=== PATIENT | female | born 1990 | race Caucasian/White ===

== ENCOUNTER 2017-06-27 15:19 | Emergency (ER) | payer OTHER ==
[~2017-06-27] VITALS: Ht 175.3 cm; Wt 70.8 kg
[~2017-06-27 15:19] MED LIST: ALPR0.5T PO; ALPR1TAB2 PO; CIDE500T PO; LACT1CAP29 PO; LEXAPRO10 MG PO; MORP15TA PO; MORP15TA3 PO; OXYC-328 PO; POLY17PO3 PO; PRED-220 PO; PRED20TA PO; TIZA4TAB PO; TRAZ50TA15 PO; [UNRECOGNIZED DRUG - OTHER] PO
--- NOTE | 2017-06-27 16:32 | PHYS DOC ---
Past Medical History Past Medical History: Other Additional Past Medical Histor: M.S., CERVICAL CA., major depress d/o Past Surgical History: Tonsillectomy, Other Additional Past Surgical Histo: PARTIAL HYSTERECTOMY, DENTAL SURGERY Alcohol Use: Rarely Drug Use: None Adult General Chief Complaint Chief Complaint: WEAKNESS/GENERALIZED HPI HPI Patient is a 27 year old [place] female who presents with was weakness. She states this happens when her MS flares up. She states she can hardly stand up to get to the bathroom because she so weak. She denies any urinary incontinence , fevers chills nausea or vomiting. She states she suffers from chronic back pain and knee pain and ankle pain. She states her last flare was present to 3 weeks ago of which she had to take prednisone for. She states that she seen Dr. Armando during her last admission. She states she's been out of all of her pain meds for the last several days. She states her primary care physician we' ll give her any more pain meds and she is to follow-up with [facility]. Review of Systems Review of Systems Constitutional: Denies fever or chills Eyes: Denies change in visual acuity, redness, or eye pain HENT: Denies nasal congestion or sore throat Respiratory: Denies cough or shortness of breath Cardiovascular: No additional information not addressed in HPI GI: Denies abdominal pain, nausea, vomiting, bloody stools or diarrhea : Denies dysuria or hematuria Musculoskeletal: Denies back pain or joint pain Integument: Denies rash or skin lesions Neurologic: Denies headache, positive for focal weaknesses all 4 extremities Endocrine: Denies polyuria or polydipsia Current Medications Current Medications Current Medications Medications (Trade) Dose Ordered Sig/Alee Start Time Stop Time Status Last Admin Dose Admin Morphine Sulfate 4 mg PRN Q2HR PRN 06/27/17 18:45 06/28/17 18:44 Ondansetron HCl (Zofran) 4 mg PRN Q8HRS PRN 06/27/17 18:45 06/28/17 18:44 Allergies Allergies Allergies Coded Allergies Type Severity Reaction Last Updated Verified gabapentin Allergy Unknown 03/22/17 Yes prednisone Adverse Reaction Intermediate PATIENT GETS EMOTIONAL 03/22/17 Yes Physical Exam Physical Exam Constitutional: Well developed, well nourished, no acute distress, non-toxic appearance. HENT: Normocephalic, atraumatic, bilateral external ears normal, oropharynx moist, no oral exudates, nose normal. Eyes: PERRLA, EOMI, conjunctiva normal, no discharge. Neck: Normal range of motion, no tenderness, supple, no stridor. Cardiovascular:Heart rate regular rhythm, no murmur Lungs & Thorax: Bilateral breath sounds clear to auscultation Abdomen: Bowel sounds normal, soft, no tenderness, no masses, no pulsatile masses. Skin: Warm, dry, no erythema, no rash. Back: No tenderness, no CVA tenderness. Extremities: No tenderness, no cyanosis, no clubbing, ROM intact, no edema. Neurologic: Alert and oriented X 3, 3 out of 4 strength of bilateral lower extremities and bilateral upper extremities normal sensory function, no focal deficits noted. Psychologic: Affect normal, judgement normal, mood normal. Current Patient Data Vital Signs Vital Signs Date Time Temp Pulse Resp B/P (MAP) Pulse Ox O2 Delivery O2 Flow Rate FiO2 06/27/17 18:21 79 19 97 06/27/17 18:10 Room Air 06/27/17 16:03 98.5 109/74 (86) 98.5 Lab Values Laboratory Tests Test 06/27/17 16:30 06/27/17 17:55 White Blood Count 7.6 x10^3/uL (4.0-11.0) Red Blood Count 4.65 x10^6/uL (3.50-5.40) Hemoglobin 12.7 g/dL (12.0-15.5) Hematocrit 38.6 % (36.0-47.0) Mean Corpuscular Volume 83 fL (79-100) Mean Corpuscular Hemoglobin 27 pg (25-35) Mean Corpuscular Hemoglobin Concent 33 g/dL (31-37) Red Cell Distribution Width 13.6 % (11.5-14.5) Platelet Count 220 x10^3/uL (140-400) Neutrophils (%) (Auto) 47 % (31-73) Lymphocytes (%) (Auto) 35 % (24-48) Monocytes (%) (Auto) 13 % (0-9) H Eosinophils (%) (Auto) 4 % (0-3) H Basophils (%) (Auto) 1 % (0-3) Neutrophils # (Auto) 3.6 x10^3uL (1.8-7.7) Lymphocytes # (Auto) 2.7 x10^3/uL (1.0-4.8) Monocytes # (Auto) 1.0 x10^3/uL (0.0-1.1) Eosinophils # (Auto) 0.3 x10^3/uL (0.0-0.7) Basophils # (Auto) 0.0 x10^3/uL (0.0-0.2) Sodium Level 141 mmol/L (136-145) Potassium Level 4.3 mmol/L (3.5-5.1) Chloride Level 106 mmol/L (98-107) Carbon Dioxide Level 26 mmol/L (21-32) Anion Gap 9 (6-14) Blood Urea Nitrogen 7 mg/dL (7-20) Creatinine 0.6 mg/dL (0.6-1.0) Estimated GFR (Cockcroft-Gault) 118.2 Glucose Level 87 mg/dL (70-99) Calcium Level 8.5 mg/dL (8.5-10.1) Magnesium Level 2.1 mg/dL (1.8-2.4) Total Bilirubin 0.2 mg/dL (0.2-1.0) Direct Bilirubin < 0.1 mg/dL (0.0-0.2) Aspartate Amino Transferase (AST) 24 U/L (15-37) Alanine Aminotransferase (ALT) 28 U/L (14-59) Alkaline Phosphatase 82 U/L (46-116) Creatine Kinase 108 U/L (26-192) Creatine Kinase MB (Mass) 0.8 ng/mL (0.0-3.6) Creatine Kinase MB Relative Index 0.7 % (0-4) Total Protein 6.1 g/dL (6.4-8.2) L Albumin 3.0 g/dL (3.4-5.0) L Thyroid Stimulating Hormone (TSH) 0.676 uIU/mL (0.358-3.74) Serum Test, Qualitative Negative (NEG) Urine Collection Type U cath Urine Color Yellow Urine Clarity Clear Urine pH 5.5 Urine Specific [place] 1.020 Urine Protein Negative mg/dL (NEG-TRACE) Urine Glucose (UA) Negative mg/dL (NEG) Urine Ketones (Stick) Negative mg/dL (NEG) Urine Blood Negative (NEG) Urine Nitrite Negative (NEG) Urine Bilirubin Negative (NEG) Urine Urobilinogen Dipstick 1.0 mg/dL (0.2 mg/dL) Urine Leukocyte Esterase Negative (NEG) Urine RBC Rare /HPF (0-2) Urine WBC Rare /HPF (0-4) Urine Squamous Epithelial Cells Mod /LPF Urine Bacteria 0 /HPF (0-FEW) Urine Mucus Marked /LPF Urine Opiates Screen Pos (NEG) Urine Methadone Screen Neg (NEG) Urine Barbiturates Neg (NEG) Urine Phencyclidine Screen Neg (NEG) Urine Amphetamine/Methamphetamine Neg (NEG) Urine Benzodiazepines Screen Pos (NEG) Urine Cocaine Screen Neg (NEG) Urine Cannabinoids Screen Neg (NEG) Urine Ethyl Alcohol Neg (NEG) Laboratory Tests 06/27/17 16:30 Laboratory Tests 06/27/17 16:30 EKG EKG [] Radiology/Procedures Radiology/Procedures [] Impressions: Chronic pain Weakness History of MS Course & Med Decision Making Course & Med Decision Making Pertinent Labs and Imaging studies reviewed. (See chart for details) Patient is been out of her pain meds his which inform the hospitalist. Spoke with Dr. Armando who states that she is be discharged home and not received steroids because she just got out of the hospital and had steroids. He states he can follow her up in the clinic. She is out of her MS Contin which she takes 30 mg by mouth twice a day, she takes morphine IR 50 mg every 4 hours. Pain she has 1 mg Xanax every 6 hours trazodone 50 mg daily at bedtime in addition to Zanaflex 4 mg 3 times a day. She is agreeable being discharged if I refill some of her medicines of which have chose MS Contin, morphine IR and Zanaflex. I've given her 1 week's worth of therapy and she states she has a follow-up appointment with [facility]. She states her primary care physician is refusing a rider and more pain meds. Her labs do not show any acute abnormalities she's being discharged in stable condition at this time to follow-up with Dr. Armando as an outpatient. Dragon Disclaimer Dragon Disclaimer This electronic medical record was generated, in whole or in part, using a voice recognition dictation system. Departure Departure Impression: Primary Impression: Pain management Disposition: HOME, SELF-CARE Condition: STABLE Referrals: CESILIA LIVINGSTON (PCP) HERNANDO COTNE MD Patient Instructions: Chronic Back Pain Additional Instructions: You were seen today for your weakness and chronic pain. You're getting your Zanaflex, MS Contin and morphine IR refilled for the next 7 days. You will need follow-up with [facility] and [facility]. Return back to ER for severe uncontrollable pain, high fevers, uncontrolled nausea vomiting, or other concerns. Please follow-up with Dr. Armando. Please call his office and schedule follow-up appointment. Scripts Tizanidine Hcl (ZANAFLEX) 4 Mg Capsule 1 CAP PO TID Y for MUSCLE SPASMS, #21 CAP Prov: NEO DALEY MD 06/27/17 Morphine Sulfate Er (MS CONTIN) 30 Mg Tablet.er 30 TAB PO BID, #14 TAB Prov: NEO DALEY MD 06/27/17 NEO DALEY MD Jun 27, 2017 16:32
[2017-06-27 16:41] LABS: BASO % 1 % (0-3); EOS % 4 % (0-3); HEMATOCRIT 38.6 % (36.0-47.0); HEMOGLOBIN 12.7 g/dL (12.0-15.5); LYMPH # 2.7 x10^3/uL (1.0-4.8); LYMPH % 35 % (24-48); MEAN CORPUSCULAR HEMOGLOBIN 27 pg (25-35); MEAN CORPUSCULAR HGB CONC 33 g/dL (31-37); MEAN CORPUSCULAR VOLUME 83 fL (79-100); MONO % 13 % (0-9); NEUT % 47 % (31-73); PLATELET COUNT 220 x10^3/uL (140-400); RED BLOOD COUNT 4.65 x10^6/uL (3.50-5.40); RED CELL DISTRIBUTION WIDTH 13.6 % (11.5-14.5); WHITE BLOOD COUNT 7.6 x10^3/uL (4.0-11.0)
[2017-06-27 16:58] LABS: NEG OBC SER NEG; POS OBC SER POS
[2017-06-27 17:04] LABS: ALK PHOS 82 U/L (46-116); ALT (SGPT) 28 U/L (14-59); AST (SGOT) 24 U/L (15-37); BLOOD UREA NITROGEN 7 mg/dL (7-20); CALCIUM 8.5 mg/dL (8.5-10.1); CARBON DIOXIDE 26 mmol/L (21-32); CREATININE 0.6 mg/dL (0.6-1.0); DIRECT BILIRUBIN < 0.1 mg/dL (0.0-0.2); GFR 118.2; GLUCOSE 87 mg/dL (70-99); TOTAL BILIRUBIN 0.2 mg/dL (0.2-1.0); TOTAL PROTEIN 6.1 g/dL (6.4-8.2)
[2017-06-27 17:25] LABS: CKMB MASS 0.8 ng/mL (0.0-3.6)
[2017-06-27 17:34] LABS: ANION GAP 9 (6-14); CHLORIDE 106 mmol/L (98-107); MAGNESIUM 2.1 mg/dL (1.8-2.4); POTASSIUM 4.3 mmol/L (3.5-5.1); SODIUM 141 mmol/L (136-145)
[2017-06-27] MEDS ORDERED: MORPHINE SULFATE 2 MG/ML DISP.SYRIN. IV/SQ PRN (18:00)
[2017-06-27 18:11] LABS: BILIRUBIN,URINE NEGATIVE (NEG); GLUCOSE,URINE NEGATIVE (NEG); NITRITE,URINE NEGATIVE (NEG); PH,URINE 5.5; PROTEIN,URINE NEGATIVE (NEG-TRACE)
[2017-06-27 18:12] LABS: BARBITURATES NEG (NEG); BENZODIAZEPINES POS (NEG); CANNABINOIDS NEG (NEG); COCAINE NEG (NEG); METHADONE NEG (NEG); OPIATES POS (NEG); PHENCYCLIDINE NEG (NEG)
[2017-06-27 18:15] LABS: BACTERIA,URINE 0 /HPF (0-FEW); RBC,URINE RARE /HPF (0-2); SQUAMOUS EPITHELIAL CELL,UR MOD /LPF; WBC,URINE RARE /HPF (0-4)
[2017-06-27] MEDS ORDERED: MORPHINE SULFATE 4 MG/ML DISP.SYRIN. IV PRN (18:45)
[2017-06-27] MEDS ORDERED: ONDANSETRON PF 4 MG/2 ML VIAL. IV PRN (18:45)
[2017-06-27 19:21] VITALS: BP 99/67
[2017-06-27] MEDS ORDERED: MORP30TA83 PO (19:34)
[2017-06-27] MEDS ORDERED: TIZA4CAP3 PO (19:34)
== END 2017-06-27 20:00 | disposition home or self-care (01) ==
LOC: ER 15:19
DX: G89.29 Other chronic pain (principal); M54.9 Dorsalgia, unspecified; M25.569 Pain in unspecified knee; M25.579 Pain in unspecified ankle and joints of unspecified foot; R53.1 Weakness; Z88.8 Allergy status to other drugs, medicaments and biological substances
CPT/HCPCS: 36415; 80048; 80076; 80307; 81001; 82553; 83735; 84443; 84703; 85025; 96374; 99284; J2270; G0479

== ENCOUNTER 2017-07-01 20:29 | Emergency (ER) | payer OTHER ==
[~2017-07-01] VITALS: Ht 175.3 cm; Wt 70.8 kg
[~2017-07-01 20:29] MED LIST changes: +MORP30TA83 PO; +TIZA4CAP3 PO
[2017-07-01] MEDS ORDERED: IV NORMAL SALINE 1000ML BAG 1,000 ML IV SCH (21:15)
[2017-07-01 21:29] LABS: BASO % 0 % (0-3); EOS % 1 % (0-3); HEMATOCRIT 44.9 % (36.0-47.0); HEMOGLOBIN 14.7 g/dL (12.0-15.5); LYMPH # 1.9 x10^3/uL (1.0-4.8); LYMPH % 20 % (24-48); MEAN CORPUSCULAR HEMOGLOBIN 27 pg (25-35); MEAN CORPUSCULAR HGB CONC 33 g/dL (31-37); MEAN CORPUSCULAR VOLUME 83 fL (79-100); MONO % 10 % (0-9); NEUT % 68 % (31-73); PLATELET COUNT 318 x10^3/uL (140-400); RED BLOOD COUNT 5.43 x10^6/uL (3.50-5.40); RED CELL DISTRIBUTION WIDTH 13.7 % (11.5-14.5); WHITE BLOOD COUNT 9.5 x10^3/uL (4.0-11.0)
--- NOTE | 2017-07-01 21:29 | PHYS DOC ---
Past Medical History Past Medical History: Other Additional Past Medical Histor: M.S., CERVICAL CA., major depress d/o Past Surgical History: Tonsillectomy, Other Additional Past Surgical Histo: PARTIAL HYSTERECTOMY, DENTAL SURGERY Alcohol Use: Rarely Drug Use: None Adult General Chief Complaint Chief Complaint: NAUSEA/VOMITING/DIARRHA HPI HPI Patient is a 27 year old female who presents with multiple complaints. The patient's primary complaint today is nausea and possible dehydration. The patient has been admitted at this facility twice in the last 3 months and was seen on June 27 in the emergency department. The patient has history of MS as well as chronic back and lower extremity pain. The patient is on chronic narcotic therapy at home. The patient recently had to change primary care providers as her previous provider, Dr. Matos, had fired her from her practice due to alleged drug-seeking behavior. The patient currently follows with Dr. Livingston. Patient states that she is being set up with pain management here [facility] but has not had an appointment at this time. The patient was seen in the emergency department on June 27 and patient was provided with a prescription for MS Contin, however patient states that she is unable to get this prescription filled as the pharmacy told her "it was too early to refill." The patient had recently been switched from Percocet to morphine sulfate immediate release tablets. Patient states that she has been getting worsening nausea and decreased appetite since taking this medication. The patient also states that she is having generalized weakness though it is noted that the patient was able to self ambulate from her room to the bathroom in the emergency department and back to her room with an unfaltering gait. During the patient's previous 2 admissions, the patient was seen in consult by neurology and had MRI imaging which showed no evidence of MS flare. The patient was suspected to have symptoms related to possible conversion disorder as dictated in her chart. In speaking with the patient and the patient's , they communicated that her primary concern was the patient's lack of appetite and concern for dehydration. This is what brought them to the emergency department today. Review of Systems Review of Systems Constitutional: Denies fever or chills [] Eyes: Denies change in visual acuity, redness, or eye pain [] HENT: Denies nasal congestion or sore throat [] Respiratory: Denies cough or shortness of breath [] Cardiovascular: Denies chest pain or edema[] GI: Nausea, decreased appetite[] : Denies dysuria or hematuria [] Musculoskeletal: Chronic back pain[] Integument: Denies rash or skin lesions [] Neurologic: Denies headache, focal weakness or sensory changes [] Current Medications Current Medications Current Medications Medications (Trade) Dose Ordered Sig/Alee Start Time Stop Time Status Last Admin Dose Admin Morphine Sulfate (Ms Contin) 30 mg 1X ONCE 07/01/17 21:45 07/01/17 21:46 DC Ondansetron HCl (Zofran) 4 mg 1X ONCE 07/01/17 21:30 07/01/17 21:31 DC 07/01/17 21:47 4 MG Sodium Chloride 1,000 ml @ 1,000 mls/hr Q1H 07/01/17 21:15 07/01/17 22:14 DC 07/01/17 21:47 1,000 MLS/HR Allergies Allergies Allergies Coded Allergies Type Severity Reaction Last Updated Verified gabapentin Allergy Unknown 03/22/17 Yes prednisone Adverse Reaction Intermediate PATIENT GETS EMOTIONAL 03/22/17 Yes Physical Exam Physical Exam Constitutional: Well developed, well nourished, no acute distress, non-toxic appearance. [] HENT: Normocephalic, atraumatic, bilateral external ears normal, oropharynx moist, no oral exudates, nose normal. [] Eyes: PERRLA, EOMI, conjunctiva normal, no discharge. [] Neck: Normal range of motion, no tenderness, supple, no stridor. [] Cardiovascular:Heart rate regular rhythm, no murmur [] Lungs & Thorax: Bilateral breath sounds clear to auscultation [] Abdomen: Bowel sounds normal, soft, no tenderness, no masses, no pulsatile masses. [] Skin: Warm, dry, no erythema, no rash. [] Back: No tenderness, no CVA tenderness. [] Extremities: No tenderness, no cyanosis, no clubbing, ROM intact, no edema. [] Neurologic: Alert and oriented X 3, normal motor function, normal sensory function, no focal deficits noted. [] Psychologic: Affect normal, judgement normal, mood normal. [] Current Patient Data Vital Signs Vital Signs Date Time Temp Pulse Resp B/P (MAP) Pulse Ox O2 Delivery O2 Flow Rate FiO2 07/01/17 20:37 99.0 99 24 125/81 (96) 97 Room Air 99.0 Lab Values Laboratory Tests Test 07/01/17 20:45 07/01/17 21:34 White Blood Count 9.5 x10^3/uL (4.0-11.0) Red Blood Count 5.43 x10^6/uL (3.50-5.40) H Hemoglobin 14.7 g/dL (12.0-15.5) Hematocrit 44.9 % (36.0-47.0) Mean Corpuscular Volume 83 fL (79-100) Mean Corpuscular Hemoglobin 27 pg (25-35) Mean Corpuscular Hemoglobin Concent 33 g/dL (31-37) Red Cell Distribution Width 13.7 % (11.5-14.5) Platelet Count 318 x10^3/uL (140-400) Neutrophils (%) (Auto) 68 % (31-73) Lymphocytes (%) (Auto) 20 % (24-48) L Monocytes (%) (Auto) 10 % (0-9) H Eosinophils (%) (Auto) 1 % (0-3) Basophils (%) (Auto) 0 % (0-3) Neutrophils # (Auto) 6.4 x10^3uL (1.8-7.7) Lymphocytes # (Auto) 1.9 x10^3/uL (1.0-4.8) Monocytes # (Auto) 1.0 x10^3/uL (0.0-1.1) Eosinophils # (Auto) 0.1 x10^3/uL (0.0-0.7) Basophils # (Auto) 0.0 x10^3/uL (0.0-0.2) Sodium Level 141 mmol/L (136-145) Potassium Level 3.5 mmol/L (3.5-5.1) Chloride Level 102 mmol/L (98-107) Carbon Dioxide Level 26 mmol/L (21-32) Anion Gap 13 (6-14) Blood Urea Nitrogen 8 mg/dL (7-20) Creatinine 0.6 mg/dL (0.6-1.0) Estimated GFR (Cockcroft-Gault) 118.2 BUN/Creatinine Ratio 13 (6-20) Glucose Level 100 mg/dL (70-99) H Calcium Level 9.6 mg/dL (8.5-10.1) Total Bilirubin 0.5 mg/dL (0.2-1.0) Aspartate Amino Transferase (AST) 27 U/L (15-37) Alanine Aminotransferase (ALT) 36 U/L (14-59) Alkaline Phosphatase 102 U/L (46-116) Total Protein 7.6 g/dL (6.4-8.2) Albumin 3.9 g/dL (3.4-5.0) Albumin/Globulin Ratio 1.1 (1.0-1.7) Lipase 154 U/L (73-393) Urine Collection Type Void Urine Color Yellow Urine Clarity Cloudy Urine pH 6.5 Urine Specific [place] 1.025 Urine Protein Negative mg/dL (NEG-TRACE) Urine Glucose (UA) Negative mg/dL (NEG) Urine Ketones (Stick) >=80 mg/dL (NEG) Urine Blood Negative (NEG) Urine Nitrite Negative (NEG) Urine Bilirubin Negative (NEG) Urine Urobilinogen Dipstick 1.0 mg/dL (0.2 mg/dL) Urine Leukocyte Esterase Negative (NEG) Urine RBC Occ /HPF (0-2) Urine WBC Occ /HPF (0-4) Urine Squamous Epithelial Cells Many /LPF Urine Bacteria Moderate /HPF (0-FEW) Urine Mucus Marked /LPF Urine Opiates Screen Pos (NEG) Urine Methadone Screen Neg (NEG) Urine Barbiturates Neg (NEG) Urine Phencyclidine Screen Neg (NEG) Urine Amphetamine/Methamphetamine Neg (NEG) Urine Benzodiazepines Screen Pos (NEG) Urine Cocaine Screen Neg (NEG) Urine Cannabinoids Screen Neg (NEG) Urine Ethyl Alcohol Neg (NEG) Laboratory Tests 07/01/17 20:45 Laboratory Tests 07/01/17 20:45 EKG EKG Not performed[] Radiology/Procedures Radiology/Procedures Not performed[] Course & Med Decision Making Course & Med Decision Making Pertinent Labs and Imaging studies reviewed. (See chart for details) Patient was started on IV fluids and Zofran in the emergency department. The patient was offered oral MS Contin, however she refused this medication stating she was concerned that it would make her sick. This was in contradiction to the patient's previous claim that it was her morphine immediate release that made her sick. The patient's blood work and urinalysis are essentially unremarkable with the exception of ketones in the urine as well as an elevated specific gravity suggesting mild dehydration. Patient's vital signs however are stable and patient appears in no acute distress. I sat and spoke extensively with the patient and her regarding appropriate pain management and stated I would refer her to Dr. Elizabeth Le of the pain management clinic. I explained that repeat visits to the emergency department for management of the patient's pain is not adequate nor is it appropriate for her condition. I recommended that the patient follow-up with your primary doctor in the next 2 days for reevaluation. I did recommend the patient return to the emergency department for any worsening or severe symptoms. Patient patient's voiced understanding and were in agreement with treatment plan at discharge. Dragon Disclaimer Dragon Disclaimer This electronic medical record was generated, in whole or in part, using a voice recognition dictation system. Departure Departure Impression: Primary Impression: Nausea Additional Impressions: Chronic back pain Dehydration Disposition: 01 HOME, SELF-CARE Condition: IMPROVED Referrals: CESILIA LIVINGSTON (PCP) ELIZABETH LE MD Patient Instructions: Chronic Pain Management, Dehydration, Adult, Nausea, Adult Additional Instructions: Call the office of Dr. Elizabeth Le, silk screen painter, for follow-up in the next 1-2 weeks for evaluation and treatment of your chronic pain. Return to the emergency department for any worsening symptoms. Scripts Ondansetron (ZOFRAN ODT) 4 Mg Tab.rapdis 1 TAB SL Q8HRS Y for NAUSEA/VOMITING, #15 TAB Prov: NAM COLBY MD 07/01/17 Problem Qualifiers Additional Impressions: Chronic back pain Back pain location: low back pain Back pain laterality: unspecified Sciatica presence: unspecified whether sciatica present Qualified Codes: M54.5 - Low back pain; G89.29 - Other chronic pain NAM COLBY MD Jul 01, 2017 21:29
[2017-07-01] MEDS ORDERED: ONDANSETRON PF 4 MG/2 ML VIAL. IV ONE (21:30)
[2017-07-01 21:40] LABS: BILIRUBIN,URINE NEGATIVE (NEG); GLUCOSE,URINE NEGATIVE (NEG); NITRITE,URINE NEGATIVE (NEG); PH,URINE 6.5; PROTEIN,URINE NEGATIVE (NEG-TRACE)
[2017-07-01 21:40] LABS: CALCIUM 9.6 mg/dL (8.5-10.1); CREATININE 0.6 mg/dL (0.6-1.0); GFR 118.2; POTASSIUM 3.5 mmol/L (3.5-5.1)
[2017-07-01 21:45] LABS: ALBUMIN 3.9 g/dL (3.4-5.0); ALBUMIN/GLOBULIN RATIO 1.1 (1.0-1.7); TOTAL BILIRUBIN 0.5 mg/dL (0.2-1.0); TOTAL PROTEIN 7.6 g/dL (6.4-8.2)
[2017-07-01] MEDS: MORPHINE ER 30 MG TABLET.ER PO ONE ×2 (21:45→22:33)
[2017-07-01 21:46] LABS: BACTERIA,URINE MODERATE /HPF (0-FEW); BARBITURATES NEG (NEG); BENZODIAZEPINES POS (NEG); CANNABINOIDS NEG (NEG); COCAINE NEG (NEG); METHADONE NEG (NEG); OPIATES POS (NEG); PHENCYCLIDINE NEG (NEG); RBC,URINE OCC /HPF (0-2); SQUAMOUS EPITHELIAL CELL,UR MANY /LPF; WBC,URINE OCC /HPF (0-4)
[2017-07-01 22:10] VITALS: BP 111/71
[2017-07-01] MEDS ORDERED: ONDA4TAB10 SL (22:16)
== END 2017-07-01 22:38 | disposition home or self-care (01) ==
LOC: ER 20:29
DX: E86.0 Dehydration (principal); R11.0 Nausea; M54.5 Low back pain; G89.29 Other chronic pain; Z88.8 Allergy status to other drugs, medicaments and biological substances; Z79.891 Long term (current) use of opiate analgesic; Z90.711 Acquired absence of uterus with remaining cervical stump
CPT/HCPCS: 36415; 80053; 80307; 81001; 83690; 85025; 87086; 96361; 96374; 99284; J2405; J7030; G0479

== ENCOUNTER 2017-11-20 21:01 | Emergency (ER) | payer OTHER ==
[2017-11-21 07:48] LABS: NEGATIVE OBC STREP NEG; POSITIVE OBC STREP POS
== END 2017-11-20 22:29 | disposition home or self-care (01) ==
LOC: ER 21:01
DX: J02.9 Acute pharyngitis, unspecified (principal); R50.9 Fever, unspecified; Z88.5 Allergy status to narcotic agent; Z88.8 Allergy status to other drugs, medicaments and biological substances
CPT/HCPCS: 87070; 87880; 99283

== ENCOUNTER → 2020-09-01 | Outpatient (CLI) | payer MEDICAID ==
[2017-11-20 21:38] VITALS: BP 114/73
[~2020-09-01] MED LIST changes: +AMOX500C PO; +MORP-15 PO; -MORP15TA3 PO; +ONDA4TAB10 SL; -OXYC-328 PO; +OXYC1TAB22 PO; +POLY17PO28 PO; -POLY17PO3 PO; -TIZA4TAB PO; +TIZA4TAB2 PO; +TRAZ-118 PO; -TRAZ50TA15 PO
--- NOTE | 2020-09-01 15:25 | RAD ---
US ABDOMEN COMPLETE: 09/01/2020 10:37 AM Indication: 30 years old Female. Generalized abdominal pain. Comparison: None. TECHNIQUE: Sonographic evaluation of the abdomen is performed utilizing grayscale and color Doppler. FINDINGS: Liver: Homogenous normal echotexture. There is hepatopedal flow within the portal venous system. Righ t hepatic lobe measures 17.3 cm. Biliary system: CBD measures 4 mm. There is no intrahepatic or extrahepatic biliary dilatation. Gallbladder: No stones, wall thickening or pericholecystic fluid. Sonographic Maxwell sign: Negative Pancreas: Visualized head and uncinate process are unremarkable. Body and tail are not visualized. Spleen: 8.6 cm. Right kidney: 10.9 x 4.6 x 4.4 cm. No hydronephrosis. Normal echotexture without focal mass or renal calculus. Left kidney: 11.2 x 5.6 x 5.8 cm. No hydronephrosis. Normal echotexture without focal mass or renal c alculus. Abdominal aorta and IVC: Visualized portions unremarkable. Proximal aorta measures 1.8 cm. Mid aorta measures 1.2 cm. Distal aorta measures 0.9 cm. Free fluid:None. IMPRESSION: No suspicious sonographic abnormality involving the abdomen as described in detail above. Electronically signed by: Shalonda Copeland MD (09/01/2020 3:22 PM) [place]
== END ==
LOC: US 10:32
PROVIDERS: ATTEND Family Medicine
DX: R10.84 Generalized abdominal pain (principal)
CPT/HCPCS: 76700

== ENCOUNTER 2021-02-10 12:40 | Emergency (ER) | payer MEDICAID ==
[~2021-02-10] VITALS: Ht 175.3 cm; Wt 58.0 kg
[~2021-02-10 12:40] MED LIST changes: -LACT1CAP29 PO; +LACT1CAP37 PO; -POLY17PO28 PO; +POLY17PO52 PO
[2021-02-10] MEDS ORDERED: oxyCODONE/APAP 5/325 1 TAB TABLET PO ONE (13:15)
[2021-02-10] MEDS ORDERED: DEXAMETHASONE 4 MG TABLET PO ONE (13:15)
--- NOTE | 2021-02-10 13:24 | ED.ADGEN ---
Past Medical History Past Medical History: Other Additional Past Medical Histor: M.S., CERVICAL CA., major depress d/o Past Surgical History: Tonsillectomy, Other Additional Past Surgical Histo: PARTIAL HYSTERECTOMY, DENTAL SURGERY Smoking Status: Current Every Day Smoker Alcohol Use: Rarely Drug Use: None General Adult EDM: Chief Complaint: VISION PROBLEM HPI: HPI: Patient is a 30-year-old female who arrives ambulatory to the emergency department with multiple medical complaints. Patient reports she was outside working in her yard on Monday and slowly developed a rash that has since spread from her arms to her torso and her abdomen. Patient reports the rash develops into small blisters and then when they are unroofed that they produce a clear discharge. Patient reports she has significant itching with this and since that time has had a headache as well as some vision changes. Patient describes her vision changes as a narrowing of her vision which has become progressive over the past 3 days as well. Patient states that she does have a history of MS and is in constant pain with myalgias. She is wondering if she may be experiencing an immune response as a relates to her MS. Patient does normally wear glasses and visited with an cleaning specialist late last year. She denies any history of fever. She further denies any history of trauma. Additionally she denies any neck involvement of her headache or neurological disturbance otherwise. She is awake, alert and neurologically intact. Review of Systems: Review of Systems: Constitutional: Denies fever or chills. [] Eyes: Reports decreased vision. [] HENT: Denies nasal congestion or sore throat. [] Respiratory: Denies cough or shortness of breath. [] Cardiovascular: Denies chest pain or edema. [] GI: Denies abdominal pain, nausea, vomiting, bloody stools or diarrhea. [] : Denies dysuria. [] Musculoskeletal: Reports low back pain and general myalgias. [] Integument: Reports rash. [] Neurologic: Reports headache. Denies focal weakness or sensory changes. [] Endocrine: Denies polyuria or polydipsia. [] Lymphatic: Denies swollen glands. [] Psychiatric: Denies depression or anxiety. [] Current Medications: Current Medications Medications (Trade) Dose Ordered Sig/Alee Start Time Stop Time Status Last Admin Dose Admin Dexamethasone (Decadron) 10 mg 1X ONCE 02/10/21 13:15 02/10/21 13:16 DC 02/10/21 13:27 10 MG Oxycodone/ Acetaminophen (Percocet 5/325) 1 tab 1X ONCE 02/10/21 13:15 02/10/21 13:16 DC 02/10/21 13:27 1 TAB Allergies: Allergies: Allergies Coded Allergies Type Severity Reaction Last Updated Verified gabapentin Allergy Unknown 03/22/17 Yes prednisone Adverse Reaction Intermediate PATIENT GETS EMOTIONAL 03/22/17 Yes Physical Exam: PE: Constitutional: Well developed, well nourished, no acute distress, non-toxic appearance. [] HENT: Normocephalic, atraumatic, bilateral external ears normal, oropharynx moist, no oral exudates, nose normal. [] Eyes: PERRLA, EOMI, conjunctiva normal, no discharge. [] Neck: Normal range of motion, no tenderness, supple, no stridor. [] Cardiovascular:Heart rate regular rhythm, no murmur [] Lungs & Thorax: Bilateral breath sounds clear to auscultation [] Abdomen: Bowel sounds normal, soft, no tenderness, no masses, no pulsatile masses. [] Skin: Patient does have what appears to be a likely viral rash. There are multiple areas over her extremities that are raised and vesicular in nature. There are no areas of petechiae or cellulitic rash. [] Back: No tenderness, no CVA tenderness. [] Extremities: No tenderness, no cyanosis, no clubbing, ROM intact, no edema. [] Neurologic: Alert and oriented X 3, normal motor function, normal sensory function, no focal deficits noted. [] Psychologic: Affect normal, judgement normal, mood normal. [] Current Patient Data: Vital Signs: Vital Signs Date Time Temp Pulse Resp B/P (MAP) Pulse Ox O2 Delivery O2 Flow Rate FiO2 02/10/21 13:27 14 98 Room Air EKG: EKG: [] Heart Score: C/O Chest Pain: No Risk Factors: Risk Factors: DM, Current or recent (<one month) smoker, HTN, HLP, family history of CAD, obesity. Risk Scores: Score 0 - 3: 2.5% MACE over next 6 weeks - Discharge Home Score 4 - 6: 20.3% MACE over next 6 weeks - Admit for Clinical Observation Score 7 - 10: 72.7% MACE over next 6 weeks - Early Invasive Strategies Radiology/Procedures: Radiology/Procedures: [] Impression: [facility] [address] [place] [address] IMAGING REPORT Signed PATIENT: KEREN CHERY ACCOUNT: [id number] : 1990 LOCATION: ER AGE: 30 SEX: F EXAM STATUS: REG ER ORD. PHYSICIAN: MANJINDER MCDOWELL DO REASON: VISION CHANGE PROCEDURE: CT HEAD WO CONTRAST CT HEAD/BRAIN WO Date: 02/10/2021 1:14 PM Clinical Indication: VISION CHANGE Comparison: None. Technique: 5 mm axial tomographic images were obtained of the head without contrast. These were viewed on brain and bone windows. One or more of the following dose reduction techniques were utilized: Automated exposure control (AEC), Adjustment of mA and/or kV according to patient size, Use of iterative reconstruction technique such as ASiR, CT scan done according to ALARA and image gently/image wisely Findings: The brain parenchyma is normal in attenuation. No intra- or extra-axial mass or fluid collection. No acute hemorrhage. The ventricles are normal in size, shape, and morphology. The uribe-white matter junction is normal. The subarachnoid cisterns are patent. The visualized paranasal sinuses are normal. The visualized portions of the orbits and globes are normal. The mastoid air cells are clear. The ice skating teacher topogram shows no lytic lesion or fracture. Impression: No acute intracranial process. Electronically signed by: Gavin Cuevas MD (02/10/2021 1:26 PM) [facility] DICTATED and SIGNED BY: GAVIN CUEVAS MD DATE: 02/10/21 [id number] Course & Med Decision Making: Course & Med Decision Making Pertinent Labs and Imaging studies reviewed. (See chart for details) The patient is awake, alert and in no acute distress. I advised the patient to follow-up with either her neurologist or an cleaning specialist with regard to her vision change during what may or may not be a flare of her multiple sclerosis. I have also provided her with the name of a physician who specializes in pain management and have advised that she follow-up with that doctor. Should she develop any changes to her condition such as neurological or anything with a fever, I advised her to return. The patient understands and has agreed to do so. She is nontoxic-appearing resting comfortably. She is stable for discharge. Tianna Disclaimer: Tianna Disclaimer: This electronic medical record was generated, in whole or in part, using a voice recognition dictation system. Departure Departure Impression: Primary Impression: Rash and nonspecific skin eruption Additional Impressions: Vision decreased History of multiple sclerosis Disposition: HOME / SELF CARE / HOMELESS Condition: STABLE Referrals: SOCO KENT MD (PCP) ELIZABETH LE MD Patient Instructions: Chronic Pain, Eye - Blurred Vision, Multiple Sclerosis, Rash Scripts Methylprednisolone (MEDROL) 4 Mg Tab.ds.pk 1 PKG PO UD for inflammation, #1 PKG Prov: MANJINDER MCDOWELL DO 02/10/21 Cyclobenzaprine Hcl (CYCLOBENZAPRINE HCL) 10 Mg Tablet 1 TAB PO TID for 5 Days, #15 TAB Prov: MANJINDER MCDOWELL DO 02/10/21 Oxycodone/Apap 5-325 (PERCOCET 5-325 MG TABLET ) 1 Each Tablet 1 TAB PO PRN Q6HRS PRN for PAIN for 3 Days, #12 TAB 0 Refills Prov: MANJINDER MCDOWELL DO 02/10/21 Problem Qualifiers MANJINDER MCDOWELL DO Feb 10, 2021 13:24
--- NOTE | 2021-02-10 13:29 | RAD ---
CT HEAD/BRAIN WO Date: 02/10/2021 1:14 PM Clinical Indication: VISION CHANGE Comparison: None. Technique: 5 mm axial tomographic images were obtained of the head without contrast. These were view ed on brain and bone windows. One or more of the following dose reduction techniques were utilized: A utomated exposure control (AEC), Adjustment of mA and/or kV according to patient size, Use of iterati ve reconstruction technique such as ASiR, CT scan done according to ALARA and image gently/image callejas ly Findings: The brain parenchyma is normal in attenuation. No intra- or extra-axial mass or fluid collection. No acute hemorrhage. The ventricles are normal in size, shape, and morphology. The uribe-white matter jacobo ction is normal. The subarachnoid cisterns are patent. The visualized paranasal sinuses are normal. The visualized portions of the orbits and globes are no rmal. The mastoid air cells are clear. The marine welder topogram shows no lytic lesion or fracture. Impression: No acute intracranial process. Electronically signed by: Abram Cuevas MD (02/10/2021 1:26 PM) [facility]
[2021-02-10] MEDS ORDERED: CYCL10TA2 PO (13:49)
[2021-02-10] MEDS ORDERED: METH4TAB2 PO (13:49)
[2021-02-10] MEDS ORDERED: OXYC1TAB15 PO (13:49)
[2021-02-10 13:54] VITALS: BP 109/82
== END 2021-02-10 14:15 | disposition home or self-care (01) ==
LOC: ER 12:40
DX: R21 Rash and other nonspecific skin eruption (principal); H54.7 Unspecified visual loss; G35 Multiple sclerosis; F17.200 Nicotine dependence, unspecified, uncomplicated
CPT/HCPCS: 70450; 99284

== ENCOUNTER 2021-03-24 11:28 | Emergency (ER) | payer MEDICAID ==
[~2021-03-24 11:28] MED LIST changes: +CYCL10TA2 PO; +METH4TAB2 PO; +OXYC1TAB15 PO
== END 2021-03-24 12:30 | disposition left against medical advice (07) ==
LOC: ER 11:28
DX: R51.9 Headache, unspecified (principal); Z53.21 Procedure and treatment not carried out due to patient leaving prior to being seen by health care provider

== ENCOUNTER → 2021-05-24 | Outpatient (CLI) | payer MEDICAID ==
--- NOTE | 2021-05-24 14:12 | KCIC ---
EXAM: Left foot, 3 views. HISTORY: Twisting injury. Lateral pain. COMPARISON: None. FINDINGS: 3 views of the left foot are obtained. There is no fracture, dislocation or subluxation. Th ere is no foreign body. IMPRESSION: No acute osseous finding. Electronically signed by: Federica Stack MD (05/24/2021 2:10 PM) [id number]
== END ==
LOC: KCIC 12:47
PROVIDERS: ATTEND Family Medicine
DX: M79.672 Pain in left foot (principal)
CPT/HCPCS: 73630

== ENCOUNTER 2021-06-27 15:18 | Emergency (ER) | payer MEDICAID ==
[~2021-06-27] VITALS: Ht 175.3 cm; Wt 60.0 kg
[2021-06-27 15:46] VITALS: BP 112/74
--- NOTE | 2021-06-27 16:58 | PHYS DOC ---
Past Medical History Past Medical History: Other Additional Past Medical Histor: M.S., CERVICAL CA., major depress., PERIODONTAL DS (ALISSON BORGES TIMBER PACKER) Past Surgical History: Tonsillectomy, Other Additional Past Surgical Histo: PARTIAL HYSTERECTOMY, DENTAL SURGERY (ALISSON BORGES TIMBER PACKER) Smoking Status: Former Smoker Alcohol Use: Rarely Drug Use: None (ALISSON BORGES APRN) General Adult EDM: Chief Complaint: OTHER COMPLAINTS HPI: HPI: Patient is a 31 year old female who presents to the ED today requesting we remove the cast on her left lower extremity which was placed a week ago. Patient states she fractured her left foot 1 month ago, she states it was casted a week ago. She states today she got the cast slightly wet. She states she called the on-call orthopedic doctor who requested her to come to the ED to have it removed. She states before she was casted she was offered an orthopedic boot which she refused because she did not think she would wear it. She states she she wants the cast removed and then orthopedic boot provided. (ALISSON BORGES TIMBER PACKER) Review of Systems: Review of Systems: Constitutional: Denies fever or chills. Musculoskeletal: Request to remove the left lower extremity cast Integument: Denies rash. [] Neurologic: Denies headache, focal weakness or sensory changes. [] Psychiatric: Denies depression or anxiety. [] (ALISSON BORGES TIMBER PACKER) Heart Score: C/O Chest Pain: N/A Risk Factors: Risk Factors: DM, Current or recent (<one month) smoker, HTN, HLP, family history of CAD, obesity. Risk Scores: Score 0 - 3: 2.5% MACE over next 6 weeks - Discharge Home Score 4 - 6: 20.3% MACE over next 6 weeks - Admit for Clinical Observation Score 7 - 10: 72.7% MACE over next 6 weeks - Early Invasive Strategies (ALISSON BORGES TIMBER PACKER) Allergies: Allergies: Allergies Coded Allergies Type Severity Reaction Last Updated Verified gabapentin Allergy Unknown 03/22/17 Yes prednisone Adverse Reaction Intermediate PATIENT GETS EMOTIONAL 03/22/17 Yes (ALISSON BORGES TIMBER PACKER) Physical Exam: PE: Constitutional: Well developed, well nourished, no acute distress, non-toxic appearance. [] Skin: Warm, dry, no erythema, no rash. [] Back: No tenderness, no CVA tenderness. [] Extremities: Left lower extremity is in a cast, there is no obvious swelling to the left foot or left upper extremity. There is no redness, there is no warmth, there is enough room in the cast to put 2 fingers in. +2 left pedal pulse. Patient able to wiggle her left toes. Cap refill less than 2 seconds to left toes. Neurologic: Alert and oriented X 3, normal motor function, normal sensory function, no focal deficits noted. [] Psychologic: Affect normal, judgement normal, mood normal. [] (ALISSON BORGES APRN) Current Patient Data: Vital Signs: Vital Signs Date Time Temp Pulse Resp B/P (MAP) Pulse Ox O2 Delivery O2 Flow Rate FiO2 06/27/21 15:46 99.0 88 16 112/74 (87) 100 Room Air 99.0 (ALISSON BORGES APRN) EKG: EKG: [] (ALISSON BORGES APRN) Radiology/Procedures: Radiology/Procedures: [] (ALISSON BORGES APRN) Course & Med Decision Making: Course & Med Decision Making Pertinent Labs and Imaging studies reviewed. (See chart for details) This is a 31-year-old female patient presenting to the ED today requesting removal of cast from her left lower extremity, cast was placed a week ago for foot fracture. She states she called the on-call orthopedic doctor who asked her to come to the ED to have it removed and be given an orthopedic boot. I spoke with the on-call doctor Dr. Preston, he states this is the second time he has received a call on this patient. He states he told this patient how to dry the cast if it got wet. He states he told the patient to wait until tomorrow and be seen by orthopedic doctor and avoid coming to the ED unless it is absolutely necessary. Information was given to patient. I requested her to contact orthopedic doctor that placed the cast tomorrow and follow-up (ALISSON BORGES TIMBER PACKER) Dragon Disclaimer: Dragon Disclaimer: This electronic medical record was generated, in whole or in part, using a voice recognition dictation system. (ALISSON BORGES APRN) Departure Departure Impression: Primary Impression: Encounter for cast check Disposition: HOME / SELF CARE / HOMELESS Condition: STABLE Referrals: SOCO KENT MD (PCP) Patient Instructions: Cast Care-Brief Additional Instructions: Please contact the orthopedic doctor tomorrow morning and follow-up with them. Try to ice and elevate the left lower extremity. You can take your on pain medicine as needed for pain. Attending Signature Attending Signature I have reviewed the PA/CORPORATE PLANNER's note and plan of care. I was available for consultation as needed during the patient's visit in the emergency department. I agree with the clinical impression, plan, and disposition. (SOCO MANZANARES DO) ALISSON BORGES APRN Jun 27, 2021 16:58 SOCO MANZANARES DO Jun 27, 2021 18:22
[2021-06-27] MEDS ORDERED: IBUPROFEN 200 MG TABLET. PO ONE (17:00)
[2021-06-27] MEDS ORDERED: ACETAMINOPHEN 500 MG TABLET PO ONE (17:00)
== END 2021-06-27 17:04 | disposition home or self-care (01) ==
LOC: ER 15:18
DX: Z46.89 Encounter for fitting and adjustment of other specified devices (principal); Z87.891 Personal history of nicotine dependence; Z88.5 Allergy status to narcotic agent; Z88.8 Allergy status to other drugs, medicaments and biological substances
CPT/HCPCS: 99283

== ENCOUNTER 2021-07-18 09:06 | Emergency (ER) | payer MEDICAID ==
[~2021-07-18] VITALS: Ht 175.3 cm; Wt 58.7 kg
[~2021-07-18 09:06] MED LIST changes: +CYCL10TA19 PO; -CYCL10TA2 PO; +TIZA-75 PO; -TIZA4TAB2 PO
[2021-07-18] MEDS ORDERED: KETOROLAC 15 MG/ML VIAL. IVP ONE (09:30)
[2021-07-18 09:37] LABS: BASO # 0.1 x10^3/uL (0.0-0.2); BASO % 1 % (0-3); EOS # 0.2 x10^3/uL (0.0-0.7); EOS % 3 % (0-3); HEMATOCRIT 41.3 % (36.0-47.0); HEMOGLOBIN 13.8 g/dL (12.0-15.5); LYMPH # 2.2 x10^3/uL (1.0-4.8); LYMPH % 27 % (24-48); MEAN CORPUSCULAR HEMOGLOBIN 27 pg (25-35); MEAN CORPUSCULAR HGB CONC 33 g/dL (31-37); MEAN CORPUSCULAR VOLUME 80 fL (79-100); MONO # 0.7 x10^3/uL (0.0-1.1); MONO % 9 % (0-9); NEUT # 4.7 x10^3/uL (1.8-7.7); NEUT % 60 % (31-73); PLATELET COUNT 301 x10^3/uL (140-400); RED BLOOD COUNT 5.14 x10^6/uL (3.50-5.40); RED CELL DISTRIBUTION WIDTH 14.4 % (11.5-14.5); WHITE BLOOD COUNT 7.9 x10^3/uL (4.0-11.0)
--- NOTE | 2021-07-18 09:39 | ED.ADGEN ---
Past Medical History Past Medical History: Other Additional Past Medical Histor: M.S., CERVICAL CA., major depress., PERIODONTAL DS Past Surgical History: Tonsillectomy, Other Additional Past Surgical Histo: PARTIAL HYSTERECTOMY, DENTAL SURGERY Smoking Status: Former Smoker Alcohol Use: Rarely Drug Use: None General Adult EDM: Chief Complaint: CHEST PAIN HPI: HPI: Patient is a 31 year old female coming in for right sternal chest pain starting approximately 8 hours ago. Patient states she was try to go to bed when it started. He states she has not has had pain before it feels like it is an elephant sitting on her chest, but is occasionally sharp and she feels like her "heart is doing somersaults". Patient denies any cardiac history. Has a h istory of MS and psychiatric issues. Denies any cough. Patient states she smokes marijuana daily but denies any other alcohol or drugs. Has a previous history of PAP use. Is adopted and does not know of any family history other than breast cancer. Patient has a history of cervical cancer and personal hysterectomy patient states that due to weakness from her MS she fell and has a fracture in her left foot. Review of Systems: Review of Systems: All other systems within normal limits except for as noted in the HPI Current Medications: Current Medications Medications (Trade) Dose Ordered Sig/Alee Start Time Stop Time Status Last Admin Dose Admin Info (CONTRAST GIVEN -- Rx MONITORING) 1 each PRN DAILY PRN 07/18/21 09:45 07/20/21 09:44 Iohexol (Omnipaque 350 Mg/ml) 100 ml 1X ONCE 07/18/21 09:45 07/18/21 09:46 DC 07/18/21 10:11 100 ML Ketorolac Tromethamine (Toradol 15mg Vial) 15 mg 1X ONCE 07/18/21 09:30 07/18/21 09:31 DC 07/18/21 09:41 15 MG Lorazepam (Ativan Inj) 0.5 mg 1X ONCE 07/18/21 10:00 07/18/21 10:01 DC 07/18/21 10:25 0.5 MG Sodium Chloride 1,000 ml @ 1,000 mls/hr 1X ONCE 07/18/21 10:30 07/18/21 11:29 DC 07/18/21 10:25 1,000 MLS/HR Allergies: Allergies: Allergies Coded Allergies Type Severity Reaction Last Updated Verified gabapentin Allergy Unknown 03/22/17 Yes prednisone Adverse Reaction Intermediate PATIENT GETS EMOTIONAL 03/22/17 Yes Physical Exam: PE: Constitutional: Well developed, well nourished, no acute distress, non-toxic ap pearance. [] HENT: Normocephalic, atraumatic, bilateral external ears normal, nose normal. [] Eyes: PERRLA, conjunctiva normal, no discharge. [] Neck: No rigidity, supple, no stridor. [] Cardiovascular: Tachycardic, regular rhythm, brisk cap refill [] Lungs & Thorax: Non labored symmetric respirations, no tachypnea or respiratory distress. Lungs clear also to [] Abdomen: Soft, nondistended. Skin: Warm, dry, no erythema, no rash. [] Back: Unremarkable Extremities: No deformities, range of motion grossly intact, no lower extremity edema [] Neurologic: Alert and oriented X 3, no focal deficits noted. [] Psychologic: Affect normal, judgement normal, mood normal. [] Current Patient Data: Labs: Laboratory Tests Test 07/18/21 09:25 White Blood Count 7.9 x10^3/uL (4.0-11.0) Red Blood Count 5.14 x10^6/uL (3.50-5.40) Hemoglobin 13.8 g/dL (12.0-15.5) Hematocrit 41.3 % (36.0-47.0) Mean Corpuscular Volume 80 fL (79-100) Mean Corpuscular Hemoglobin 27 pg (25-35) Mean Corpuscular Hemoglobin Concent 33 g/dL (31-37) Red Cell Distribution Width 14.4 % (11.5-14.5) Platelet Count 301 x10^3/uL (140-400) Neutrophils (%) (Auto) 60 % (31-73) Lymphocytes (%) (Auto) 27 % (24-48) Monocytes (%) (Auto) 9 % (0-9) Eosinophils (%) (Auto) 3 % (0-3) Basophils (%) (Auto) 1 % (0-3) Neutrophils # (Auto) 4.7 x10^3/uL (1.8-7.7) Lymphocytes # (Auto) 2.2 x10^3/uL (1.0-4.8) Monocytes # (Auto) 0.7 x10^3/uL (0.0-1.1) Eosinophils # (Auto) 0.2 x10^3/uL (0.0-0.7) Basophils # (Auto) 0.1 x10^3/uL (0.0-0.2) D-Dimer (Myriam) < 0.27 ug/mlFEU Sodium Level 139 mmol/L (136-145) Potassium Level 3.5 mmol/L (3.5-5.1) Chloride Level 104 mmol/L (98-107) Carbon Dioxide Level 23 mmol/L (21-32) Anion Gap 12 (6-14) Blood Urea Nitrogen 8 mg/dL (7-20) Creatinine 0.8 mg/dL (0.6-1.0) Estimated GFR (Cockcroft-Gault) 82.6 BUN/Creatinine Ratio 10 (6-20) Glucose Level 112 mg/dL (70-99) H Calcium Level 8.6 mg/dL (8.5-10.1) Phosphorus Level 2.4 mg/dL (2.6-4.7) L Magnesium Level 2.1 mg/dL (1.8-2.4) Total Bilirubin 0.7 mg/dL (0.2-1.0) Aspartate Amino Transferase (AST) 15 U/L (15-37) Alanine Aminotransferase (ALT) 21 U/L (14-59) Alkaline Phosphatase 77 U/L (46-116) Troponin I High Sensitivity 5 ng/L (4-50) FM-Wuc-Y-Type Natriuretic Peptide 28 pg/mL (0-124) Total Protein 7.2 g/dL (6.4-8.2) Albumin 4.2 g/dL (3.4-5.0) Albumin/Globulin Ratio 1.4 (1.0-1.7) Lipase 107 U/L (73-393) Laboratory Tests 07/18/21 09:25 Laboratory Tests 07/18/21 09:25 Vital Signs: Vital Signs Date Time Temp Pulse Resp B/P (MAP) Pulse Ox O2 Delivery O2 Flow Rate FiO2 07/18/21 11:12 94 16 126/89 (101) 98 Room Air 07/18/21 09:10 98.3 98.3 EKG: EKG: Sinus tachycardia, heart rate 106 beats per minute, normal axis, no ST elevation or depression, borderline QT interval. Incomplete right bundle branch block. Previous EKG dated 03-22-17 shows incomplete right bundle [] Heart Score: C/O Chest Pain: Yes HEART Score for Chest Pain: HEART Score for Chest Pain Response (Comments) Value History Slighlty/Non-Suspicious 0 ECG Nonspecific Repolarizatio 1 Age < 45 0 Risk Factors 1 or 2 Risk Factors 1 Troponin < Normal Limit 0 Total 2 Risk Factors: Risk Factors: DM, Current or recent (<one month) smoker, HTN, HLP, family history of CAD, obesity. Risk Scores: Score 0 - 3: 2.5% MACE over next 6 weeks - Discharge Home Score 4 - 6: 20.3% MACE over next 6 weeks - Admit for Clinical Observation Score 7 - 10: 72.7% MACE over next 6 weeks - Early Invasive Strategies Radiology/Procedures: Radiology/Procedures: [facility] [address] [place], [place] [id number] IMAGING REPORT Signed PATIENT: KEREN CHERY ACCOUNT: [id number] : 1990 LOCATION: ER AGE: 31 SEX: F EXAM STATUS: REG ER ORD. PHYSICIAN: TRACIE PIERCE MD REASON: chest pain;OMNI 350, 100ML PROCEDURE: CT ANGIOGRAPHY CHEST CTA CHEST INDICATION: chest pain Comparison: None. TECHNIQUE: Following the uneventful administration of intravenous contrast, 100 cc Omnipaque 350, axial CT sections were obtained through the lungs and upper abdomen. Multiplanar reconstructions and MIP images were obtained. PQRS compliance statement: One or more of the following individualized dose reduction techniques were utilized for this examination: 1. Automated exposure control 2. Adjustment of the mA and/or kV according to patient size 3. Use of iterative reconstruction technique FINDINGS: Pulmonary arteries: No evidence of pulmonary thromboembolic disease Lungs and Airways: No pulmonary mass or consolidation. No abnormality of the central airways. Pleura: The pleural spaces are normal. Heart and Mediastinum: The visualized thyroid is normal in size and attenuation. No axillary or supraclavicular lymphadenopathy. No mediastinal, hilar or retrocrural lymphadenopathy. The heart and pericardium are within normal limits. The great vessels of the thorax are normal. Abdomen: Limited images through the upper abdomen show no abnormality of the visualized organs. Bones and Soft Tissues: The visualized bones and chest wall soft tissues are within normal limits. IMPRESSION: 1. No evidence of pulmonary thromboembolic disease. 2. No pulmonary mass or consolidation. Electronically signed by: Gavin Cuevas MD (07/18/2021 10:27 AM) [id number] DICTATED and SIGNED BY: GAVIN CUEVAS MD DATE: 07/18/21 [id number] [] Course & Med Decision Making: Course & Med Decision Making Pertinent Labs and Imaging studies reviewed. (See chart for details) [] Dragon Disclaimer: Dragon Disclaimer: This electronic medical record was generated, in whole or in part, using a voice recognition dictation system. Departure Departure Impression: Primary Impression: Chest pain Disposition: 01 HOME / SELF CARE / HOMELESS Condition: STABLE Referrals: SOCO EKNT MD (PCP) Patient Instructions: Chest Pain (Nonspecific) Additional Instructions: For chronic pain management can contact Anthony Carter MD [facility] [address] [place] [phone] Scripts Hydrocodone Bit/Acetaminophen (HYDROCODONE-APAP 5-325 ) 1 Tab Tablet 1 TAB PO PRN Q6HRS PRN for PAIN for 2 Days, #6 TAB 0 Refills Prov: TRACIE PIERCE MD 07/18/21 TRACIE PIERCE MD Jul 18, 2021 09:39
[2021-07-18] MEDS ORDERED: CONTRAST GIVEN. MC PRN (09:45)
[2021-07-18] MEDS ORDERED: IOHEXOL 350 MG/ML 100 ML VIAL. IV ONE (09:45)
[2021-07-18 09:53] LABS: CALCIUM 8.6 mg/dL (8.5-10.1); CREATININE 0.8 mg/dL (0.6-1.0); GFR 82.6; POTASSIUM 3.5 mmol/L (3.5-5.1)
[2021-07-18 09:58] LABS: ALBUMIN 4.2 g/dL (3.4-5.0); ALBUMIN/GLOBULIN RATIO 1.4 (1.0-1.7); MAGNESIUM 2.1 mg/dL (1.8-2.4); PHOSPHORUS 2.4 mg/dL (2.6-4.7); TOTAL BILIRUBIN 0.7 mg/dL (0.2-1.0); TOTAL PROTEIN 7.2 g/dL (6.4-8.2)
[2021-07-18] MEDS ORDERED: IV NORMAL SALINE 1000ML BAG 1,000 ML IV ONE (10:30)
--- NOTE | 2021-07-18 10:30 | RAD ---
CTA CHEST INDICATION: chest pain Comparison: None. TECHNIQUE: Following the uneventful administration of intravenous contrast, 100 cc Omnipaque 350, axi al CT sections were obtained through the lungs and upper abdomen. Multiplanar reconstructions and MIP images were obtained. PQRS compliance statement: One or more of the following individualized dose reduction techniques were utilized for this examinat ion: 1. Automated exposure control 2. Adjustment of the mA and/or kV according to patient size 3. Use of iterative reconstruction technique FINDINGS: Pulmonary arteries: No evidence of pulmonary thromboembolic disease Lungs and Airways: No pulmonary mass or consolidation. No abnormality of the central airways. Pleura: The pleural spaces are normal. Heart and Mediastinum: The visualized thyroid is normal in size and attenuation. No axillary or supra clavicular lymphadenopathy. No mediastinal, hilar or retrocrural lymphadenopathy. The heart and peric ardium are within normal limits. The great vessels of the thorax are normal. Abdomen: Limited images through the upper abdomen show no abnormality of the visualized organs. Bones and Soft Tissues: The visualized bones and chest wall soft tissues are within normal limits. IMPRESSION: 1. No evidence of pulmonary thromboembolic disease. 2. No pulmonary mass or consolidation. Electronically signed by: Abram Cuevas MD (07/18/2021 10:27 AM) [id number]
[2021-07-18 11:37] VITALS: BP 122/89
[2021-07-18] MEDS ORDERED: HYDR-2761 PO (11:39)
--- NOTE | 2021-07-18 19:40 | EKG ---
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
== END 2021-07-18 11:57 | disposition home or self-care (01) ==
LOC: ER 09:06
DX: R07.2 Precordial pain (principal); Z87.891 Personal history of nicotine dependence; Z88.5 Allergy status to narcotic agent; Z88.8 Allergy status to other drugs, medicaments and biological substances
CPT/HCPCS: 36415; 71275; 80053; 83690; 83735; 83880; 84100; 84484; 85025; 85379; 93005; 96361; 96374; 96375; 99285; J1885; J2060; J7030; Q9967

== ENCOUNTER → 2021-07-21 | Outpatient (CLI) | payer MEDICAID ==
[2021-07-18 11:37] VITALS: BP 122/89
[~2021-07-21] MED LIST changes: +HYDR-2761 PO
--- NOTE | 2021-07-22 10:53 | KCIC ---
Exam Date: 07/21/2021 3:30 PM MRI LEFT LOWER EXTREMITY W/O Indication: Reason: LEFT FOOT PAIN, STRESS FRACTURE / Spl. Instructions: / History: Pt. fell, hurts to bear wt., pain lateral aspect.. TECHNIQUE: Multiplanar MR imaging of the left hindfoot was performed without intravenous contrast. COMPARISON: July 13, 2021 radiographs FINDINGS: Visualized osseous structures demonstrate normal marrow signal without evidence of marrow edema, stre ss change, or acute fracture. Evaluation of the ankle ligaments is limited due to [id number] and positioning. Visualized flexor, extensor, and peroneal tendons are within normal limits. IMPRESSION: No acute abnormality seen. No stress change or acute fracture. Electronically signed by: Fredy Hart MD (07/22/2021 10:50 AM) [id number]
== END ==
LOC: KCIC MRI 15:21
PROVIDERS: ATTEND Physician Assistant
DX: M84.375A Stress fracture, left foot, initial encounter for fracture (principal); M79.672 Pain in left foot
CPT/HCPCS: 73718

== ENCOUNTER 2021-09-02 19:34 | Emergency (ER) | payer MEDICAID ==
[~2021-09-02] VITALS: Ht 175.3 cm; Wt 57.3 kg
--- NOTE | 2021-09-02 19:54 | PHYS DOC ---
Past Medical History Past Medical History: Other Additional Past Medical Histor: M.S., CERVICAL CA., major depress., PERIODONTAL DS Past Surgical History: Tonsillectomy, Other Additional Past Surgical Histo: PARTIAL HYSTERECTOMY, DENTAL SURGERY Smoking Status: Former Smoker Alcohol Use: None Drug Use: None General Adult EDM: Chief Complaint: FLU SYMPTOM HPI: HPI: Patient is a 31 year old female who presents with multiple complaints. She reports that she has not felt well for the past 2 to 3 weeks. She reports 3 da ys of sharp chest pain, shortness of breath, mild nonproductive cough. She denies dizziness or diaphoresis. She denies nausea or vomiting. She denies hemoptysis or sputum production. She denies leg pain or swelling. She has chronic pain issues, and she usually takes Percocet. This is prescribed by her primary care physician. She reports that she was recently exposed to someone who is unvaccinated, who tested positive for COVID-19. She reports ultimately, that she is here to prove to her friend that vaccinations really do work. Review of Systems: Review of Systems: Constitutional: Denies fever or chills. She does report malaise. Eyes: Denies change in visual acuity. [] HENT: Denies nasal congestion or sore throat. [] Respiratory: He does report a minimal, dry cough. Reports mild dyspnea. No dyspnea exertion Cardiovascular: Ports mild, sharp, atypical chest pain. No peripheral edema. No syncope. GI: Denies abdominal pain, nausea, vomiting, or diarrhea : Denies urinary symptoms] Musculoskeletal: Tonic and diffuse back pain and myalgias, unchanged from baseline Integument: Denies rash. [] Neurologic: Denies headache, focal weakness or sensory changes. [] Psychiatric: Chronic mood disturbance, unchanged Heart Score: C/O Chest Pain: Yes HEART Score for Chest Pain: HEART Score for Chest Pain Response (Comments) Value History Slighlty/Non-Suspicious 0 ECG Normal 0 Age < 45 0 Risk Factors No Risk Factors 0 Troponin < Normal Limit 0 Total 0 Risk Factors: Risk Factors: DM, Current or recent (<one month) smoker, HTN, HLP, family history of CAD, obesity. Risk Scores: Score 0 - 3: 2.5% MACE over next 6 weeks - Discharge Home Score 4 - 6: 20.3% MACE over next 6 weeks - Admit for Clinical Observation Score 7 - 10: 72.7% MACE over next 6 weeks - Early Invasive Strategies Allergies: Allergies: Allergies Coded Allergies Type Severity Reaction Last Updated Verified gabapentin Allergy Unknown 03/22/17 Yes prednisone Adverse Reaction Intermediate PATIENT GETS EMOTIONAL 03/22/17 Yes Physical Exam: PE: Constitutional: Well developed, well nourished, no acute distress, non-toxic appearance. [] HENT: Normocephalic, atraumatic Eyes: Sclera are clear, anicteric Neck: Normal range of motion, no tenderness, supple, no stridor. Trachea midline Cardiovascular:Heart rate regular rhythm, was 2 radial and +2 posterior tibial pulses bilaterally, warm and well-perfused appearing, no peripheral edema Lungs & Thorax: Bilateral breath sounds clear to auscultation no rales, rhonchi or wheezes. No stridor. No distress Abdomen: Bowel sounds normal, soft, no tenderness, no masses, no pulsatile masses. [] Skin: Warm, dry, no erythema, no rash. [] Back: No tenderness, no CVA tenderness. [] Extremities: No tenderness, no cyanosis, no clubbing, ROM intact, no edema. No calf tenderness Neurologic: Alert and oriented X 3, normal motor function, normal sensory function, no focal deficits noted. [] Psychologic: Affect is flat. She is cooperative. [] EKG: EKG: EKG is interpreted at 2101 Rhythm is sinus Rate is 66 bpm [place] is normal No STEMI Radiology/Procedures: Radiology/Procedures: [] Course & Med Decision Making: Course & Med Decision Making Pertinent Labs and Imaging studies reviewed. (See chart for details) I discussed the findings, differential diagnosis and plan of care with the patient. She drove here, so she did not receive any sedating medications. She reports that she is unable to take Toradol, though it is unclear why this is the case. There is no indication for further invasive exams, imaging or admission at this time based on current clinical presentation. Her emergency department work-up is unremarkable. I told her to discuss her symptoms with her PCP. She reports that she has plenty of her regularly prescribed medications, she should take them as directed return precautions given. In addition, I told her she should quarantine due to recent higher risk exposure. She understands this. Tianna Disclaimer: Tianna Disclaimer: This electronic medical record was generated, in whole or in part, using a voice recognition dictation system. Departure Departure Impression: Primary Impression: Atypical chest pain Additional Impression: Exposure to COVID-19 virus Disposition: HOME / SELF CARE / HOMELESS Condition: GOOD Referrals: SOCO KENT MD (PCP) Patient Instructions: Chest Pain (Nonspecific) Additional Instructions: Return to the ER for more severe shortness of breath, more severe chest pain, uncontrolled vomiting, abdominal pain, dehydration, focal weakness, if you're acutely injured or sustained any trauma or for any other concerns. Please take your regularly scheduled medications as directed. Stay well-hydrated. Follow- up with your primary care physician. DOM CRAWFORD DO Sep 02, 2021 19:54
[2021-09-02 20:47] LABS: INFLUENZA A PATIENT NEGATIVE (NEGATIVE); INFLUENZA B PATIENT NEGATIVE (NEGATIVE)
--- NOTE | 2021-09-02 20:54 | RAD ---
EXAM: AP View of the chest DATE: 09/02/2021 8:45 PM INDICATION: Reason: chest pain / Spl. Instructions: / History: COMPARISON: No Prior FINDINGS: The heart is not enlarged. Mediastinal and hilar contours are normal. No focal parenchymal airspace opacity. No pleural effusion or pneumothorax. IMPRESSION: 1. No radiographic evidence for acute cardiopulmonary process. Electronically signed by: Mor Vila MD (09/02/2021 8:52 PM) GI
[2021-09-02 20:59] LABS: BASO # 0.1 x10^3/uL (0.0-0.2); BASO % 1 % (0-3); EOS # 0.1 x10^3/uL (0.0-0.7); EOS % 1 % (0-3); HEMATOCRIT 39.9 % (36.0-47.0); HEMOGLOBIN 13.1 g/dL (12.0-15.5); LYMPH # 1.9 x10^3/uL (1.0-4.8); LYMPH % 22 % (24-48); MEAN CORPUSCULAR HEMOGLOBIN 27 pg (25-35); MEAN CORPUSCULAR HGB CONC 33 g/dL (31-37); MEAN CORPUSCULAR VOLUME 83 fL (79-100); MONO % 11 % (0-9); NEUT # 5.5 x10^3/uL (1.8-7.7); NEUT % 65 % (31-73); PLATELET COUNT 290 x10^3/uL (140-400); RED BLOOD COUNT 4.81 x10^6/uL (3.50-5.40); RED CELL DISTRIBUTION WIDTH 16.1 % (11.5-14.5); WHITE BLOOD COUNT 8.5 x10^3/uL (4.0-11.0)
[2021-09-02 21:14] LABS: CALCIUM 8.8 mg/dL (8.5-10.1); CREATININE 0.5 mg/dL (0.6-1.0); GFR 142.1; POTASSIUM 3.7 mmol/L (3.5-5.1)
[2021-09-02 21:20] LABS: ALBUMIN 3.6 g/dL (3.4-5.0); ALBUMIN/GLOBULIN RATIO 1.3 (1.0-1.7); MAGNESIUM 2.2 mg/dL (1.8-2.4); TOTAL BILIRUBIN 0.3 mg/dL (0.2-1.0); TOTAL PROTEIN 6.3 g/dL (6.4-8.2)
[2021-09-02 23:20] VITALS: BP 108/76
--- NOTE | 2021-09-03 05:28 | EKG ---
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
--- NOTE | 2021-09-03 14:28 | NUR ---
IP: Informed pt of negative covid test. Pt verbalized understanding.
== END 2021-09-03 | disposition home or self-care (01) ==
LOC: ER 19:34
DX: R07.89 Other chest pain (principal); R06.02 Shortness of breath; R05.9 Cough, unspecified; Z20.822 Contact with and (suspected) exposure to COVID-19; Z88.8 Allergy status to other drugs, medicaments and biological substances
CPT/HCPCS: 36415; 71045; 80053; 83690; 83735; 83880; 84484; 85025; 85379; 87426; 87804; 93005; 99285; U0003; U0005

== ENCOUNTER → 2021-10-22 | Outpatient (CLI) | payer MEDICAID ==
[2021-10-22] MEDS: GADOTERATE 5 MMOL/10ML VIAL. IVP ONE (15:38)
--- NOTE | 2021-10-22 16:22 | KCIC ---
EXAM: Cervical spine MRI without and with contrast. HISTORY: Multiple sclerosis. TECHNIQUE: Multiplanar, multisequence magnetic resonance imaging of the cervical spine was performed without and with contrast. COMPARISON: 03/23/2017 FINDINGS: There is no significant listhesis. There is multilevel endplate remodeling. There is no rachel picious osseous lesion. There is no acute or subacute fracture. There are ill-defined T2 hyperintense lesions within the cervical spinal cord, the largest of which are seen within the left aspect of the spinal cord at C3 and the right aspect of spinal cord at C5-C6. No convincing enhancing lesion is se en. At C2-C3, there is a left lateral recess disc protrusion and osteophyte complex. There is no stenosis . At C3-C4, there is a left lateral greater than right recess to foraminal disc protrusion and osteophy te complex superimposed on a disc bulge and endplate remodeling. There is mild bilateral facet arthro kalyani. There is mild right and moderate left foraminal stenosis. There is moderate central canal sten osis with deformation of the left greater the right ventral aspect of the spinal cord measuring 7.2 m m in anterior posterior dimension. There is effacement of the left lateral recess. At C4-C5, there is endplate remodeling. There is mild bilateral facet arthropathy. There is no stenos is. At C5-C6, there is a left paracentral disc protrusion superimposed on endplate remodeling. There is m ild right and moderate left facet arthropathy. There is deformation of the left ventral aspect of the spinal cord and moderate central canal is a cyst measuring 6.6 mm in anterior posterior dimension. At C6-C7, there is a shallow broad-based left paracentral to lateral recess disc protrusion superimpo sed on endplate remodeling. There is mild central canal stenosis measuring 7.4 mm in anterior posteri or dimension. IMPRESSION: 1. T2 hyperintense lesions within the cervical spinal cord predominantly at C3 and C5-C6, stable comp ared to the prior study and consistent with the reported history of demyelinating disease. There is n o enhancing lesion to suggest active demyelination. 2. Multilevel degenerative change involving the cervical spine, described in detail above. These find ings have progressed at the majority of cervical levels and contribute to stenosis as described above . Electronically signed by: Federica Stack MD (10/22/2021 4:19 PM) [id number]
== END ==
LOC: KCIC MRI 14:49
PROVIDERS: ATTEND Nurse Practitioner Family
DX: M47.812 Spondylosis without myelopathy or radiculopathy, cervical region (principal); M48.02 Spinal stenosis, cervical region; M25.78 Osteophyte, vertebrae; G35 Multiple sclerosis
CPT/HCPCS: 72156; A9575

== ENCOUNTER → 2021-11-22 | Outpatient (CLI) | payer MEDICAID ==
[~2021-11-22] MED LIST changes: +GADOTERATE 7.5 MMOL/15ML VIAL. IVP ONE
--- NOTE | 2021-11-22 14:30 | KCIC ---
EXAM: Brain MRI with and without contrast. HISTORY: Multiple sclerosis. TECHNIQUE: Multiplanar, multisequence magnetic resonance imaging of the brain was performed prior to and following the administration of intravenous contrast. COMPARISON: 03/23/2017. FINDINGS: There is no restricted diffusion to suggest acute or subacute infarction. There is no mass effect or midline shift. There is no hydrocephalus. There is no susceptibility effect to suggest hemo rrhage. There are multiple scattered areas of T2/FLAIR hyperintensity within the cerebral white matter, prima rily in a periventricular and subcortical distribution. There has been slight interval increase in th e size of a lesion along the right frontal horn. The remainder of the lesions are similar compared to the prior exam. There are also stable lesions involving the bilateral thalami and left cerebral pedu ncle. The orbits are unremarkable. There is a tiny left maxillary sinus mucous retention cyst. The mastoid air cells are unremarkable. There are normal flow voids within the cerebral vessels. There is no susp icious calvarial lesion. There is no enhancing lesion. IMPRESSION: 1. Extensive scattered areas of signal change within the cerebral white matter, thalami and left cere bral peduncle, the appearance of which favors the reported history of chronic demyelinating disease. There has been slight interval increase in the size of a lesion along the right frontal horn. No conv incing new lesion or enhancing lesion is seen. 2. No acute intracranial finding. Electronically signed by: Federica Stack MD (11/22/2021 2:27 PM) [id number]
== END ==
LOC: KCIC MRI 13:26
PROVIDERS: ATTEND Nurse Practitioner Family
DX: G93.89 Other specified disorders of brain (principal); J34.1 Cyst and mucocele of nose and nasal sinus; G35 Multiple sclerosis
CPT/HCPCS: 70553; A9575